=== PATIENT | female | born 1990 | race Caucasian/White ===

== ENCOUNTER 2023-03-06 21:08 | Emergency (ER) | payer BC, MEDICAID ==
[~2023-03-06] VITALS: Ht 157.5 cm; Wt 77.1 kg
[~2023-03-06 21:08] MED LIST: PREN-385 PO
[2023-03-06 21:25] VITALS: BP 121/69; PULSE 86; RESP 20; TEMP 98.1; O2SAT 99
[2023-03-07] MEDS ORDERED: diazePAM 5 MG TAB PO ONE (01:40)
[2023-03-07] MEDS ORDERED: KETOROLAC 30 MG/ML VIAL IM ONE (01:40)
[2023-03-07 01:44] VITALS: BP 112/67; PULSE 88; RESP 15; O2SAT 99
[2023-03-07 02:32] LABS: APPEARANCE,URINE CLOUDY (CLEAR); BILIRUBIN,URINE NEGATIVE (NEGATIVE); BLOOD, URINE 3+ (NEGATIVE); COLOR,URINE RED (YELLOW); LEUKOCYTE ESTERASE ,URINE 2+ (NEGATIVE); NITRITE, URINE POSITIVE (NEGATIVE); PROTEIN,URINE 3+ (NEGATIVE); UGLUCOSE NEGATIVE (NEGATIVE)
[2023-03-07 02:36] LABS: BACTERIA,URINE 10-30 (MOD) /HPF (None Seen); MUCUS,URINE 1+ /LPF (None Seen); RBC,URINE TOO NUMEROUS TO COUN /HPF (0-5); SQUAMOUS EPITHELIAL CELL,UR 0-3 (FEW) /LPF (0-3 (FEW))
[2023-03-07] MEDS ORDERED: cefTRIAXone 1,000 MG in LIDOCAINE MPF 1% 2.1 ML IM ONE (02:50)
[2023-03-07] MEDS ORDERED: cefTRIAXone 1,000 MG VIAL ONE (02:53)
[2023-03-07] MEDS ORDERED: LIDOCAINE MPF 1% 5 ML ONE (02:54)
[2023-03-07] MEDS ORDERED: NAPR-54 PO (03:06)
[2023-03-07] MEDS ORDERED: CEPH-588 PO (03:06)
== END 2023-03-07 03:13 | disposition home or self-care (01) ==
LOC: MED 21:08
DX: N39.0 Urinary tract infection, site not specified (principal); Z79.899 Other long term (current) drug therapy
CPT/HCPCS: 71045; 81001; 81025; 87086; 93005; 96372; 99285; J0696; J1885; J2001; Q0092